=== PATIENT | female | born 1965 | race Caucasian/White ===

== ENCOUNTER → 2023-12-21 09:08 | Outpatient (REF) | payer BC, SELFPAY | LOC: RAD 09:08 | PROVIDERS: ATTENDING PHYSICIAN Internal Medicine | DX: M85.80 Other specified disorders of bone density and structure, unspecified site (principal) | CPT/HCPCS: 77080 ==

== ENCOUNTER → 2024-02-28 08:49 | Outpatient (REF) | payer BC, SELFPAY | LOC: WDC 08:49 | PROVIDERS: ATTENDING PHYSICIAN Family Medicine | DX: Z12.31 Encounter for screening mammogram for malignant neoplasm of breast (principal) | CPT/HCPCS: 77063; 77067 ==

== ENCOUNTER → 2025-03-05 08:52 | Outpatient (REF) | payer BC, SELFPAY | LOC: WDC 08:52 | PROVIDERS: ATTENDING PHYSICIAN Obstetrics & Gynecology Gynecology; FAMILY PHYSICIAN Family Medicine | DX: Z12.31 Encounter for screening mammogram for malignant neoplasm of breast (principal) | CPT/HCPCS: 77063; 77067 ==

== ENCOUNTER 2025-04-15 23:22 | Emergency (ER) | payer BC, SELFPAY ==
[2025-04-15 23:25] VITALS: BP 133/83
--- NOTE | 2025-04-16 00:41 | ED.GENMED ---
History of Present Illness
General
Chief Complaint: Fall
Source: patient
Exam Limitations: none
Time Seen by Provider: 04/15/25 23:57
Nursing documentation reviewed up to this point in time: agreed with
History of Present Illness
History of Present Illness:
see MDM
Past History
Past History
ED Past Medical History: Hypercholesterolemia and Psychiatric
Social History
Tobacco: Non-smoker
Alcohol: None
Drug: None
Personal:
Living: with family
Review of Systems
Review of Systems
Allergies reviewed?: Yes
All Other Systems: Not applicable
Phy Exam
Physical Exam
Physical Exam:
GENERAL: Alert , in no apparent distress
HEAD: L eyebrow laceration approx 2 cm with STS left lateral superior orbit
also midline vertical nasal laceration approx 3 cm
NECK: no midline tenderness, active ROM intact, no paraspinal muscle tenderness;
EYE: pupils equal and reactive, EOMs intact.
ENT: o/p clr, mmm. no hemotympanum
CARDIAC: Regular rate and rhythm, no edema
LUNGS: Clear breath sounds bilaterally, no acute respiratory distress, no wheezes/rales/rhonchi
ABDOMEN: Soft, without focal tenderness, no r/g, no cvat
NEUROLOGICAL: Alert and oriented, no focal neuro deficits, CN intact, 5/5 strength, sensation intact
SKIN: Warm and dry,
MUSCULOSKELETAL: No edema, well perfused.
PSYCH: Normal and appropriate interaction.
Course
Orders/Labs/Results
Orders:
Orders
04/16/25 00:14
CT Facial Bones W/o Iv Contras Urgent
Comment:
Reason For Exam: nasal injury
CT Head W/o Iv Contrast Urgent
Comment:
Reason For Exam: fall hit head
Vital Signs
Initial and Last Documented VS:
Initial Vital Signs
Temp Pulse Resp BP Pulse Ox
37.0 C 86 16 133/83 100
04/15/25 23:25 04/15/25 23:25 04/15/25 23:25 04/15/25 23:25 04/15/25 23:25
Last Documented Vital Signs
Temp Pulse Resp BP Pulse Ox
37.0 C 72 18 124/82 99
04/15/25 23:25 04/16/25 01:40 04/16/25 01:40 04/16/25 01:40 04/16/25 01:40
Procedures
Laceration Closure
Upper Anterior Nose:
Status of Wound: clean
Size of Wound in cm: 3
Description of Wound Edges: sharp and flap-well vascularized
Preparation: cleaned with saline
Anesthesia: 1% Lidocaine
Revision/Debridement: routine- no revision and irrigate-direct pressure
Wound exploration: explored to base- no FB
Type of Closure: single layer closure
Skin Closure Material: 6-0 nylon
Number of sutures: 6
Left Superior Lateral Eye brow:
Status of Wound: clean
Size of Wound in cm: 2
Description of Wound Edges: sharp and flap-well vascularized
Preparation: cleaned with saline
Anesthesia: 1% Lidocaine
Revision/Debridement: minor revision
Wound exploration: explored to base- no FB
Type of Closure: single layer closure
Skin Closure Material: 6-0 prolene
Number of sutures: 4
MDM/Problems Addressed
Differential Diagnosis Includes:
see MDM
MDM/Problems Addressed:
Note:
CHIEF COMPLAINT(S)
Facial laceration and feeling light-headed after a fall.
HISTORY OF PRESENT ILLNESS
The patient is a 60-year-old female who experienced a fall after tripping over a dogs step intended for a bench. During the fall, she hit a wooden bench or possibly a pillar fan, resulting in lacerations to her face NOSE BRIDGE AND l EYEBROW. She
reports not losing consciousness but felt her head was 'kind of heavy' and 'funny.' At first, she was dizzy while washing off the blood and felt her blood pressure might be low. The dizziness resolved during a 25-minute drive to the clinic, but she
continues to feel a bit different. Visual disturbances such as seeing spots were present initially, but these have since resolved. The patient is on blood thinners. She last received a tetanus shot approximately 2-3 years ago. Her past medical
history is significant for PTSD, depression, anxiety disorder, and a childhood heart murmur.
denies significant head pain, nasal pain, dental pain, neck pain, waekness/numbness
mild L wrist soreness
SOCIAL DETERMINANTS AFFECTING HEALTH
The patient reports being on medications for PTSD, depression, and anxiety disorder.
MEDICATIONS
- Valium (Diazepam) for depression and anxiety disorder.
- Statin for hyperlipidemia.
PHYSICAL EXAM
- Head appears without obvious deformity except for facial lacerations.
- Facial examination reveals two linear lacerations requiring sutures.
- Movement of the neck is slightly tight but without significant pain.
- Oral examination shows no structural damage to teeth.
- Slight discomfort in the wrist possibly due to arthritis.
Nursing notes reviewed and vital signs reviewed.
PROBLEM LIST
Acute:
- Facial lacerations
- Possible mild head trauma
Chronic:
- PTSD
- Depression
- Anxiety disorder
- Hyperlipidemia
PLAN
1. Proceed with a computed tomography (CT) scan to rule out any facial fractures or intracranial injury.
2. Repair facial lacerations with sutures; stitches to be removed in 5-7 days.
3. Tylenol (Acetaminophen) will be offered if the patient desires for pain management.
4. Monitor for any complications from the fall or the effects of being on blood thinners.
DIFFERENTIAL DIAGNOSIS
The Differential Diagnosis includes, in no particular order and is not limited to:
1. Concussion
2. Intracranial hemorrhage
3. Facial fracture
4. Orthostatic hypotension
5. Vasovagal syncope
6. Hypertensive crisis
7. Migraine
8. Tension-type headache
9. Inner ear disorder
10. Anxiety-related dizziness
60 y/o Fmechanical trip and fall into a piece of furtniture strking her face
laceration to nose and L eyebrow
following head strike she felt lightheaded
pt nisreen anxious about having head injury, as her mother due to complications of SDH
pt is not on thinnners
she has facial lacerations but no obvious bony tenderness
neuro intact
ct head/facial bones neg
wound irrigated and repaired with sutures
tetanus UTD
wound care instructions
*Pulse Oximetry
SaO2: 100
Oxygen Mode of Delivery: Room air
Patient hypoxic: no (99)
*Critical Care Note
Total Time (30-74mins, 75-104mins- exclusive of procedures): Not Applicable
ED Attending Note
-
Portions of this chart may have been created with voice recognition software.� Occasional wrong word or��sound alike� substitutions may have occurred due to the inherent limitations of voice recognition software.
Discharge Plan
Departure
Patient Disposition: Home (Routine Discharge)
Date of Disposition: 04/16/25
Time of Disposition: 01:30
Patient with high blood pressure during this ER visit?: No
Condition: Fair
Covid-19: Not Applicable
Discharge Problem:
Face lacerations
Instructions: Head Injury in Adults (DC), Laceration Repair With Stitches (DC)
Prescriptions:
No Action
cholecalciferol (vitamin D3) 2,000 UNITS tablet
4,000 units PO DAILY
multivitamin with folic acid [Tab-A-Vianey] 1 TABLET tablet
1 tab PO DAILY
rosuvastatin 5 mg Tablet
5 mg PO DAILY
Auvelity 45-105 mg Tablet, Ir And Er, Biphasic
1 tab PO BID
Probiotic
1 cap PO DAILY
Referrals:
UNKNOWN - PT DOES,NOT KNOW [Family Provider]
Activity Restrictions/Additional Instructions:
KEEP THE WOUND CLEAN AND DRY FOR 24 HOURS
AFTER THAT YOU CAN GET IT WET IN THE BATH/SHOWER ONCE A DAY AND MAKE SURE IT IS CLEAN AND THERE IS NO DRIED BLOOD ON THE STITCHES
APPLY NEOSPORIN AND A BANDAID
THE STITCHES NEED TO BE REMOVED IN ABOUT 5-7 DAYS, SEE YOUR DOCTOR FOR THIS.
THE LAST DAY BEFORE STITCHES OUT, NO OINTMENT, LEAVE OPEN TO AIR
WATCH FOR SIGNS OF INFECTION AND RETURN NEEDED FOR PAIN, SWELLING, REDNESS, DRAINAGE, BLEEDING.
MOTRIN NEEDED FOR PAIN.
YOUR CAT SCANS WERE NEGATIVE FOR FRACTURE AND HEAD INJURY
Interventions
Interventions:
*Risk Screen - Suicide Last Done: 04/15/25 23:25
*General Assessment Last Done: 04/15/25 23:25
*Neglect/Abuse Screening Last Done: 04/16/25 01:00
*ED- Fall Risk Assessment Last Done: 04/15/25 23:31
*ED COVID-19 Vaccine History Last Done: 04/16/25 01:00
*Nursing Disposition Last Done: 04/16/25 01:40
ED-Musculoskeletal Assessment Last Done: 04/16/25 00:14
ED- Neurological Assessment Last Done: 04/16/25 00:12
ED-Skin Assessment Last Done: 04/16/25 00:10
Discharge Date and Time
Discharge Date/Time: 04/16/25 01:41
Print Language: CZECH
[2025-04-16 01:05] VITALS: BMI 23.8
[2025-04-16 01:40] VITALS: BP 124/82
== END 2025-04-16 01:41 | disposition home or self-care (01) ==
LOC: EMR 23:22
PROVIDERS: EMERGENCY PHYSICIAN Emergency Medicine
DX: S01.112A Laceration without foreign body of left eyelid and periocular area, initial encounter (principal); S01.21XA Laceration without foreign body of nose, initial encounter; E78.00 Pure hypercholesterolemia, unspecified; F41.9 Anxiety disorder, unspecified; F32.A Depression, unspecified; F43.10 Post-traumatic stress disorder, unspecified; W01.190A Fall on same level from slipping, tripping and stumbling with subsequent striking against furniture, initial encounter
CPT/HCPCS: 99284; 12013; 70450; 70486